=== PATIENT | female | born 1960 | race Caucasian/White ===

== ENCOUNTER → 2017-03-30 | Outpatient (CLI) | payer BC | END | disposition home or self-care (01) | LOC: C.PAPS 08:56 | PROVIDERS: ATTEND Internal Medicine | DX: Z01.419 Encounter for gynecological examination (general) (routine) without abnormal findings (principal) ==

== ENCOUNTER → 2017-04-04 | Outpatient (CLI) | payer BC ==
[2017-04-04 10:43] LABS: BASO ABS # 0.04 K/uL (0-0.2); COMPLETE YES; EOS % 4.5 %; HEMATOCRIT 38.1 % (37-47); LYMPH % 30.3 %; LYMPH ABS # 1.21 K/uL (1.2-3.4); MEAN CELL VOLUME 86.2 fL (80-100); MEAN CORPUSCULAR HGB CONC 33.6 g/dl (32-36); MEAN PLATELET VOLUME 9.7 fL (7.4-10.4); MONO % 7.3 %; NEUT % 56.9 %; PLATELET COUNT 292 K/uL (130-400); RED BLOOD COUNT 4.42 M/uL (4.2-5.4)
[2017-04-04 11:17] LABS: ALT/SGPT 15 U/L (12-78); AST/SGOT 13 U/L (15-37); BLOOD UREA NITROGEN 15 mg/dl (7-18); BUN/CREATININE RATIO 18.7 (10-20); CALCIUM 8.9 mg/dl (8.5-10.1); CARBON DIOXIDE 29 mmol/L (21-32); CHLORIDE 106 mmol/L (98-107); CHOLESTEROL 185 mg/dl (0-200); GLUCOSE 90 mg/dl (70-99); POTASSIUM 4.3 mmol/L (3.5-5.1); SODIUM 140 mmol/L (136-145); TRIGLYCERIDES 84 mg/dl (0-150); VERY LOW DENSITY LIPOPROT CALC 17 mg/dl
[2017-04-04 11:20] LABS: ALB/GLOB RATIO 1.2 (0.9-2); ALKALINE PHOSPHATASE 80 U/L (45-117); CHOLESTEROL/HDL RATIO 3.6; HDL CHOLESTEROL 51 mg/dl
== END | disposition home or self-care (01) ==
LOC: C.LAB 09:29
PROVIDERS: ATTEND Internal Medicine
DX: E78.5 Hyperlipidemia, unspecified (principal); R53.83 Other fatigue

== ENCOUNTER → 2017-05-15 | Outpatient (CLI) | payer BC ==
--- NOTE | 2017-05-18 07:48 | MAMMOGRAPHY REPORT ---
THIS REPORT HAS BEEN AMENDED. BILATERAL DIGITAL SCREENING MAMMOGRAM TOMOSYNTHESIS WITH CAD: 05/15/2017 CLINICAL HISTORY: Routine screening. Patient has no complaints. TECHNIQUE: Breast tomosynthesis in addition to standard 2D mammography was performed. Current study was also evaluated with a Computer Aided Detection (CAD) system. COMPARISON: No prior exams were available for comparison. BREAST COMPOSITION: The tissue of both breasts is heterogeneously dense, which may obscure small mas ses. FINDINGS: There is a lobulated circumscribed 16 mm mass with associated internal calcifications in t he right medial breast at approximately 3:00, for which spot magnification views and possible breast ultrasound are recommended for further evaluation. The remainder of both breasts demonstrate no suspicious masses, calcifications, or areas of enterprise architect ural distortion. A linear scar marker denotes a scar on the left upper outer breast. IMPRESSION: ACR BI-RADS CATEGORY 0: INCOMPLETE EVALUATION: NEED ADDITIONAL IMAGING EVALUATION Right breast mass and associated calcifications, for which additional imaging evaluation is recommend ed. Note that no prior mammograms are available for comparison; if the patient has had prior mammogr ams at an outside institution, these would be helpful for comparison. The patient will be called to schedule an appointment. Approximately 10% of breast cancers are not detected with mammography. A negative mammographic report should not delay biopsy if a clinically suggestive mass is present. Lynn Delatorre M.D. ah/:05/15/2017 15:46:36 Telephone Clerks Supervisor: Mathieu Hardwick M, [facility] letter sent: Addl Imaging 0 BI-RADS Code: ACR BI-RADS Category 0: Incomplete Evaluation: Need Additional Imaging Evaluation AMENDMENT: 05/20/2017 Lynn Delatorre M.D. Prior outside mammograms from [facility] was dated 12/21/2014, 12/19/2013, 10/29/2012, 10/29/2011, 1 06/15/2009 and 04/11/2009 have become available for comparison. Compared to the prior exams, there has been no significant interval change. Circumscribed mass in the right 3:00 breast is stable dating ba ck to at least the 2008 exam. A few coarse benign calcifications are seen within the mass which are stable compared to the 2014 exam. There are no suspicious masses, calcifications, or areas of kelvin ectural distortion within either breast. There is no mammographic evidence of malignancy. Recommend routine bilateral screening mammograms in one year. Amended BI-RADS: ACR BI-RADS Category 2: Benign letter sent: Normal 06/09
== END | disposition home or self-care (01) ==
LOC: C.MAMM 14:06
PROVIDERS: ATTEND Internal Medicine
DX: Z12.31 Encounter for screening mammogram for malignant neoplasm of breast (principal); N63.10 Unspecified lump in the right breast, unspecified quadrant; R92.1 Mammographic calcification found on diagnostic imaging of breast